=== PATIENT | female | born 1975 | race Caucasian/White ===

== ENCOUNTER 2019-02-25 15:08 | Emergency (ER) | payer BC, SELFPAY ==
[2019-02-25 15:52] VITALS: BP 118/57; PULSE 51; RESP 16; TEMP 36.4; O2SAT 99; BMI 31.6
[2019-02-25 16:46] LABS: Pregnancy Test Urine Negative (Negative)
[2019-02-25 16:47] LABS: Appearance Urine UA CLEAR; Bilirubin Urine UA NEGATIVE (NEGATIVE); Color Urine UA YELLOW; Glucose Urine UA NEGATIVE (Negative); Ketones Urine UA NEGATIVE (NEGATIVE); Leukocyte Esterase Urine UA NEGATIVE (NEGATIVE); Nitrite Urine UA NEGATIVE (Negative); Occult Blood Urine UA TRACE-LYSED (Negative); Protein Urine UA NEGATIVE (Negative); Specific Gravity Urine UA 1.015 (1.000-1.035); Urobilinogen Urine UA 0.2 E.U./dL (0.2)
--- NOTE | 2019-02-25 17:10 | DI.US.S_ITS ---
PROCEDURE: US PELVIC COMPLETE INDICATIONS: PAIN; HISTORY CYSTS TECHNIQUE: Real-time scanning was performed of the pelvic organs, with image documentation. Additional endovaginal scanning was necessary due to incomplete visualization of the adnexal and endometrial structures by transabdominal scanning. COMPARISON: None. FINDINGS: Transabdominal scanning: Limited scanning through the kidneys shows no hydronephrosis. No pathologic free abdominal or pelvic fluid. Endovaginal scanning: Uterus: Uterus is normal in size at 9.5 x 4.4 x 6.0 cm. The endometrium measures 5.7 mm in combined thickness. Ovaries: The right ovary is not visualized. The left ovary measures 2.8 x 1.5 x 2.0 cm. 2 left follicular cysts are visualized. IMPRESSION: 1. Nonvisualization of the right ovary. 2. Left ovarian follicular cysts as above. Otherwise unremarkable pelvic ultrasound. Dictated by: Laura Rhodes M.D. on 02/25/2019 at 19:27 Approved by: Laura Rhodes M.D. on 02/25/2019 at 19:29
[2019-02-25 17:18] LABS: Add Manual Diff / Slide Review NO; Basophils Absolute Auto 0 /uL (0-100); Basophils Percent Auto 0.4 % (0-2); Eosinophils Absolute Auto 1000 /uL (0-450); Hematocrit 41.6 % (36-46); Hemoglobin 13.8 g/dL (12.0-16.0); Lymphocytes Absolute Auto 3200 /uL (1100-4500); Lymphocytes Percent Auto 39.1 % (25-40); Mean Corpuscular HGB Conc 33.1 % (30-36); Mean Corpuscular Volume 90.5 fL (80-100); Monocytes Absolute Auto 500 /uL (0-900); Monocytes Percent Auto 6.2 % (3-14); Neutrophils Absolute Auto 3500 /uL (1500-7000); Neutrophils Percent Auto 42.3 % (50-75); Platelet Count 254 X10^3/uL (150-400); Red Blood Cell Count 4.59 X10^6/uL (4.0-5.2); Red Cell Distribution Width 14.6 % (11.6-14.8); White Blood Cell Count 8.2 X10^3/uL (4.5-11.0)
[2019-02-25 17:19] LABS: Alanine Aminotransferase 13 IU/L (9-52); Albumin 4.7 g/dL (3.5-5.0); Albumin Globulin Ratio 1.4 (1.0-2.8); Alkaline Phosphatase 75 U/L (38-126); Amylase 98 U/L (30-110); Aspartate Aminotransferase 19 IU/L (14-36); BUN Creatinine Ratio 18.6 (6-22); Bilirubin Total 0.9 mg/dL (0.2-1.3); Blood Urea Nitrogen 13 mg/dL (7-17); Calcium 9.6 mg/dL (8.4-10.2); Carbon Dioxide 27 mmol/L (22-32); Chloride 102 mmol/L (98-107); Estimated Glomerular Filt Rate > 60.0 mL/min (>60); Globulin 3.3 g/dL (1.7-4.1); Glucose 97 mg/dL (70-100); HEMOLYSIS < 15 (0-50); Lipase 294 U/L (23-300); Potassium 4.4 mmol/L (3.4-5.1); Sodium 139 mmol/L (137-145)
--- NOTE | 2019-02-25 18:59 | ED.ABDPAIN ---
HPI - Abdominal Pain <SANDRA Torres - Last Filed: 02/25/19 19:54> General Chief Complaint: Abdominal Pain Stated Complaint: Having ovarian pain Time Seen by Provider: 02/25/19 16:14 Source: patient Mode of arrival: ambulatory Limitations: no limitations History of Present Illness HPI narrative: The patient is a 43-year-old female nonsmoker presents with chief complaint of right lower quadrant pain. She states that she had a for 30 minutes, then it went away than she had for another 30 minutes so she came into the emergency department. She states that she also recently had left lower quadrant pain. She denies any fevers nausea vomiting or diarrhea. She denies any possibility of sexually transmitted infections. She denies any dysuria urgency or frequency. She denies any vaginal discharge. She states that she had a large ovarian cyst while she was and believes that she has another one. Related Data Home Medications Medication Instructions Recorded Confirmed vit-iron fum-folic ac 1 cap PO QDAY #0 12/31/16 [Mynatal] Previous Rx's Medication Instructions Recorded oxycodone-acetaminophen [Percocet] 1 tab PO Q4P PRN #30 tab 12/31/16 Allergies Allergy/AdvReac Type Severity Reaction Status Date / Time No Known Drug Allergies Allergy Verified 02/25/19 15:52 Review of Systems <SANDRA Torres - Last Filed: 02/25/19 19:54> Review of Systems GENERAL: Denies chills, fatigue, malaise, fever, sweats. HEENT: Denies sinus pain, ear pain, sore throat, difficulty swallowing, dizziness. RESPIRATORY: Denies dyspnea, cough, wheezing, hemoptysis, sputum. CARDIOVASCULAR: Denies chest pain, palpitations, orthopnea, edema, GASTROINTESTINAL: See HPI : Denies dysuria, frequency, incontinence, hematuria, urinary retention. MUSCULOSKELETAL: denies weakness, joint pain, or bony pain SKIN: Denies rash, skin lesions, or other NEUROLOGIC: Denies weakness, headache, numbness, change in speech, confusion, seizures, incoordination. PSYCHIATRIC: No concerning psychosocial issues. 12 point review of systems is negative except for those stated above PFSH <SANDRA Torres - Last Filed: 02/25/19 19:54> Medical History (Updated 02/25/19 @ 19:47 by SANDRA Torres) History of ovarian cyst (Acute) Social History Smoking Status: Never smoker Social History Smoking Status: Never smoker Exam <SANDRA Torres - Last Filed: 02/25/19 19:54> Narrative Exam Narrative: GENERAL: This is a well-nourished, well-developed patient, in no acute distress HEAD: Atraumatic. Normocephalic. No temporal or scalp tenderness. EYES: Pupils equal round and reactive. Extraocular motions intact. No scleral icterus. No injection or drainage. ENT: Nose without bleeding, purulent drainage or septal hematoma. Throat without erythema, tonsillar hypertrophy or exudate. Uvula midline. Airway patent. NECK: Trachea midline. No JVD or lymphadenopathy. Supple, nontender, no meningeal signs. CARDIOVASCULAR: Regular rate and rhythm without murmurs, gallops, or rubs. RESPIRATORY: Clear to auscultation. Breath sounds equal bilaterally. No wheezes, rales, or rhonchi. GASTROINTESTINAL: Abdomen soft, non-tender, nondistended. No hepato-splenomegaly, or palpable masses. No guarding. Active bowel sounds all 4 quadrants. Negative obturator sign. No peritoneal signs. EXTREMITIES: No clubbing, cyanosis, or edema. No joint tenderness, effusion, or edema noted. BACK: Nontender without deformity or crepitance. No flank tenderness. NEURO: AOx3. SKIN: No rash or erythema. Initial Vital Signs Initial Vital Signs: Vital Signs Temperature 97.6 F 02/25/19 15:52 Pulse Rate 51 L 02/25/19 15:52 Respiratory Rate 16 02/25/19 15:52 Blood Pressure 118/57 L 02/25/19 15:52 Pulse Oximetry 99 02/25/19 15:52 <Africa Sterling DO - Last Filed: 03/05/19 20:33> Initial Vital Signs Initial Vital Signs: Vital Signs Temperature 97.6 F 02/25/19 15:52 Pulse Rate 51 L 02/25/19 15:52 Respiratory Rate 16 02/25/19 15:52 Blood Pressure 118/57 L 02/25/19 15:52 Pulse Oximetry 99 02/25/19 15:52 Course <SANDRA Torres - Last Filed: 02/25/19 19:54> Orders Ordered: ED Orders 02/25/19 16:35 Urinalysis Sreen (Dip Only) Stat 02/25/19 16:37 Test Urine Stat 02/25/19 16:43 Amylase Stat Complete Blood Count AUTO DIFF Stat Comprehensive Metabolic Panel Stat Lipase Stat 02/25/19 17:10 US pelvic complete Stat Vital Signs - 8 hr 02/25/19 15:52 02/25/19 19:20 Temperature 97.6 F Pulse Rate 51 L 49 L Respiratory Rate 16 16 Blood Pressure 118/57 L Blood Pressure [Right Arm] 104/60 Pulse Oximetry 99 98 <Africa Sterling DO - Last Filed: 03/05/19 20:33> Orders Ordered: ED Orders 02/25/19 16:35 Urinalysis Sreen (Dip Only) Stat 02/25/19 16:37 Test Urine Stat 02/25/19 16:43 Amylase Stat Complete Blood Count AUTO DIFF Stat Comprehensive Metabolic Panel Stat Lipase Stat 02/25/19 17:10 US pelvic complete Stat Vital Signs - 8 hr 02/25/19 15:52 02/25/19 19:20 Temperature 97.6 F Pulse Rate 51 L 49 L Respiratory Rate 16 16 Blood Pressure 118/57 L Blood Pressure [Right Arm] 104/60 Pulse Oximetry 99 98 MDM - Abdominal Pain <TRELL Torres - Last Filed: 02/25/19 19:54> Lab Data Result diagrams: 02/25/19 16:43 02/25/19 16:43 Lab Results 02/25/19 02/25/19 02/25/19 Range/Units 16:35 16:37 16:43 WBC 8.2 (4.5-11.0) X10^3/uL RBC 4.59 (4.0-5.2) X10^6/uL Hgb 13.8 (12.0-16.0) g/dL Hct 41.6 (36-46) % MCV 90.5 (80-100) fL MCH 30.0 (26-34) PG MCHC 33.1 (30-36) % RDW 14.6 (11.6-14.8) % Plt Count 254 (150-400) X10^3/uL Neut % (Auto) 42.3 L (50-75) % Lymph % (Auto) 39.1 (25-40) % Boundary % (Auto) 6.2 (3-14) % Eos % (Auto) 12.0 H (2-4) % Baso % (Auto) 0.4 (0-2) % Neut # (Auto) 3500 (2557-6069) /uL Lymph # (Auto) 3200 (8646-4261) /uL Boundary # (Auto) 500 (0-900) /uL Eos # (Auto) 1000 H (0-450) /uL Baso # (Auto) 0 (0-100) /uL Sodium (137-145) mmol/L Potassium (3.4-5.1) mmol/L Chloride (98-107) mmol/L Carbon Dioxide (22-32) mmol/L BUN (7-17) mg/dL Creatinine (0.52-1.04) mg/dL Estimated GFR (>60) mL/min BUN/Creatinine Ratio (6-22) Glucose (70-100) mg/dL Calcium (8.4-10.2) mg/dL Total Bilirubin (0.2-1.3) mg/dL AST (14-36) IU/L ALT (9-52) IU/L Alkaline Phosphatase (38-126) U/L Total Protein (6.3-8.2) g/dL Albumin (3.5-5.0) g/dL Globulin (1.7-4.1) g/dL Albumin/Globulin Ratio (1.0-2.8) Amylase (30-110) U/L Lipase (23-300) U/L Urine Color Yellow Urine Appearance Clear Urine pH 6.0 (4.5-8.0) Ur Specific [place] 1.015 (1.000-1.035) Urine Protein Negative (Negative) Urine Glucose (UA) Negative (Negative) g/dL Urine Ketones Negative (NEGATIVE) Urine Occult Blood Trace-lysed (Negative) Urine Nitrate Negative (Negative) Urine Bilirubin Negative (NEGATIVE) Urine Urobilinogen 0.2 (0.2) E.U./dL Ur Leukocyte Esterase Negative (NEGATIVE) Urine Test Negative (Negative) 02/25/19 Range/Units 16:43 WBC (4.5-11.0) X10^3/uL RBC (4.0-5.2) X10^6/uL Hgb (12.0-16.0) g/dL Hct (36-46) % MCV (80-100) fL MCH (26-34) PG MCHC (30-36) % RDW (11.6-14.8) % Plt Count (150-400) X10^3/uL Neut % (Auto) (50-75) % Lymph % (Auto) (25-40) % Boundary % (Auto) (3-14) % Eos % (Auto) (2-4) % Baso % (Auto) (0-2) % Neut # (Auto) (5163-0362) /uL Lymph # (Auto) (9910-6853) /uL Bound[place] # (Auto) (0-900) /uL Eos # (Auto) (0-450) /uL Baso # (Auto) (0-100) /uL Sodium 139 (137-145) mmol/L Potassium 4.4 (3.4-5.1) mmol/L Chloride 102 (98-107) mmol/L Carbon Dioxide 27 (22-32) mmol/L BUN 13 (7-17) mg/dL Creatinine 0.70 (0.52-1.04) mg/dL Estimated GFR > 60.0 (>60) mL/min BUN/Creatinine Ratio 18.6 (6-22) Glucose 97 (70-100) mg/dL Calcium 9.6 (8.4-10.2) mg/dL Total Bilirubin 0.9 (0.2-1.3) mg/dL AST 19 (14-36) IU/L ALT 13 (9-52) IU/L Alkaline Phosphatase 75 (38-126) U/L Total Protein 8.0 (6.3-8.2) g/dL Albumin 4.7 (3.5-5.0) g/dL Globulin 3.3 (1.7-4.1) g/dL Albumin/Globulin Ratio 1.4 (1.0-2.8) Amylase 98 (30-110) U/L Lipase 294 (23-300) U/L Urine Color Urine Appearance Urine pH (4.5-8.0) Ur Specific [place] (1.000-1.035) Urine Protein (Negative) Urine Glucose (UA) (Negative) g/dL Urine Ketones (NEGATIVE) Urine Occult Blood (Negative) Urine Nitrate (Negative) Urine Bilirubin (NEGATIVE) Urine Urobilinogen (0.2) E.U./dL Ur Leukocyte Esterase (NEGATIVE) Urine Test (Negative) Imaging Data pelvic US: Radiologist's impression: Linda Barrientos 43 F [address] [address] Ultrasound Report Signed Patient: Linda Barrientos [facility]#: [id number] : 1975Acct:[id number] Age/Sex: 43 / FDate of Service: 02/25/19 Loc: ED Accession Number: [id number] Procedure: US pelvic complete Ordering Provider: Dulce RuffinP- PROCEDURE: US PELVIC COMPLETE INDICATIONS: PAIN; HISTORY CYSTS TECHNIQUE: Real-time scanning was performed of the pelvic organs, with image documentation. Additional endovaginal scanning was necessary due to incomplete visualization of the adnexal and endometrial structures by transabdominal scanning. COMPARISON: None. FINDINGS: Transabdominal scanning: Limited scanning through the kidneys shows no hydronephrosis. No pathologic free abdominal or pelvic fluid. Endovaginal scanning: Uterus: Uterus is normal in size at 9.5 x 4.4 x 6.0 cm. The endometrium measures 5.7 mm in combined thickness. Ovaries: The right ovary is not visualized. The left ovary measures 2.8 x 1.5 x 2.0 cm. 2 left follicular cysts are visualized. IMPRESSION: 1. Nonvisualization of the right ovary. 2. Left ovarian follicular cysts as above. Otherwise unremarkable pelvic ultrasound. Dictated by: Laura Rhodes M.D. on 02/25/2019 at 19:27 Approved by: Laura Rhodes M.D. on 02/25/2019 at 19:29 [facility] Narrative Medical decision making narrative: The patient is a 43-year-old female presents with right lower quadrant pain. She has normal blood work, normal urinalysis negative . Her ultrasound does not visualize her right ovary, but she is noted to have some left follicular cysts. She does not have any acute signs of appendicitis, no leukocytosis, no fever vomiting. She is eating during exam. She later states that her pain is gone completely. Thus I do not believe she has an acute abdomen, and her exam correlates. I discussed at length follow up with her PCP. Discussed coming back to the ER for any acute concerns such as in the keep down fluids, fever combined with abdominal pain etc. No questions or concerns upon discharge. <Africa Sterling, DO - Last Filed: 03/05/19 20:33> Lab Data Lab Results 02/25/19 02/25/19 02/25/19 Range/Units 16:35 16:37 16:43 WBC 8.2 (4.5-11.0) X10^3/uL RBC 4.59 (4.0-5.2) X10^6/uL Hgb 13.8 (12.0-16.0) g/dL Hct 41.6 (36-46) % MCV 90.5 (80-100) fL MCH 30.0 (26-34) PG MCHC 33.1 (30-36) % RDW 14.6 (11.6-14.8) % Plt Count 254 (150-400) X10^3/uL Neut % (Auto) 42.3 L (50-75) % Lymph % (Auto) 39.1 (25-40) % Boundary % (Auto) 6.2 (3-14) % Eos % (Auto) 12.0 H (2-4) % Baso % (Auto) 0.4 (0-2) % Neut # (Auto) 3500 (8681-2338) /uL Lymph # (Auto) 3200 (9234-5765) /uL Bound[place] # (Auto) 500 (0-900) /uL Eos # (Auto) 1000 H (0-450) /uL Baso # (Auto) 0 (0-100) /uL Sodium (137-145) mmol/L Potassium (3.4-5.1) mmol/L Chloride (98-107) mmol/L Carbon Dioxide (22-32) mmol/L BUN (7-17) mg/dL Creatinine (0.52-1.04) mg/dL Estimated GFR (>60) mL/min BUN/Creatinine Ratio (6-22) Glucose (70-100) mg/dL Calcium (8.4-10.2) mg/dL Total Bilirubin (0.2-1.3) mg/dL AST (14-36) IU/L ALT (9-52) IU/L Alkaline Phosphatase (38-126) U/L Total Protein (6.3-8.2) g/dL Albumin (3.5-5.0) g/dL Globulin (1.7-4.1) g/dL Albumin/Globulin Ratio (1.0-2.8) Amylase (30-110) U/L Lipase (23-300) U/L Urine Color Yellow Urine Appearance Clear Urine pH 6.0 (4.5-8.0) Ur Specific [place] 1.015 (1.000-1.035) Urine Protein Negative (Negative) Urine Glucose (UA) Negative (Negative) g/dL Urine Ketones Negative (NEGATIVE) Urine Occult Blood Trace-lysed (Negative) Urine Nitrate Negative (Negative) Urine Bilirubin Negative (NEGATIVE) Urine Urobilinogen 0.2 (0.2) E.U./dL Ur Leukocyte Esterase Negative (NEGATIVE) Urine Test Negative (Negative) 02/25/19 Range/Units 16:43 WBC (4.5-11.0) X10^3/uL RBC (4.0-5.2) X10^6/uL Hgb (12.0-16.0) g/dL Hct (36-46) % MCV (80-100) fL MCH (26-34) PG MCHC (30-36) % RDW (11.6-14.8) % Plt Count (150-400) X10^3/uL Neut % (Auto) (50-75) % Lymph % (Auto) (25-40) % Bound[place] % (Auto) (3-14) % Eos % (Auto) (2-4) % Baso % (Auto) (0-2) % Neut # (Auto) (0215-5092) /uL Lymph # (Auto) (6762-1075) /uL Bound[place] # (Auto) (0-900) /uL Eos # (Auto) (0-450) /uL Baso # (Auto) (0-100) /uL Sodium 139 (137-145) mmol/L Potassium 4.4 (3.4-5.1) mmol/L Chloride 102 (98-107) mmol/L Carbon Dioxide 27 (22-32) mmol/L BUN 13 (7-17) mg/dL Creatinine 0.70 (0.52-1.04) mg/dL Estimated GFR > 60.0 (>60) mL/min BUN/Creatinine Ratio 18.6 (6-22) Glucose 97 (70-100) mg/dL Calcium 9.6 (8.4-10.2) mg/dL Total Bilirubin 0.9 (0.2-1.3) mg/dL AST 19 (14-36) IU/L ALT 13 (9-52) IU/L Alkaline Phosphatase 75 (38-126) U/L Total Protein 8.0 (6.3-8.2) g/dL Albumin 4.7 (3.5-5.0) g/dL Globulin 3.3 (1.7-4.1) g/dL Albumin/Globulin Ratio 1.4 (1.0-2.8) Amylase 98 (30-110) U/L Lipase 294 (23-300) U/L Urine Color Urine Appearance Urine pH (4.5-8.0) Ur Specific [place] (1.000-1.035) Urine Protein (Negative) Urine Glucose (UA) (Negative) g/dL Urine Ketones (NEGATIVE) Urine Occult Blood (Negative) Urine Nitrate (Negative) Urine Bilirubin (NEGATIVE) Urine Urobilinogen (0.2) E.U./dL Ur Leukocyte Esterase (NEGATIVE) Urine Test (Negative) Discharge Plan Departure Patient Disposition: Home Clinical Impression: Abdominal pain Qualifiers: Abdominal location: right lower quadrant Qualified Code(s): R10.31 - Right lower quadrant pain Discharge Date/Time: 02/25/19 19:52 Interventions: ED Discharge Assessment Last Done: 02/25/19 19:51 Instructions: DI for Abdominal Pain-Adult Activity Restrictions/Additional Instructions: Your lab work, and ultrasound today were grossly normal. However they did not visualize your right ovary. Your lab work and imaging combined with her pain-free status are very reassuring at this point time. Please follow-up with primary care provider. Monitor for fever, inability keep down fluids and come back to the emergency department for any acute concerns. Prescriptions: No Action vit-iron fum-folic ac [Mynatal] 1 EACH capsule 1 cap PO QDAY Qty: 0 RF: 0 oxycodone-acetaminophen [Percocet] 5 MG/325 MG tablet 1 tab PO Q4P PRNQty: 30 RF: 0 Referrals: Юлия Miller MD [Family Provider] - <Africa Sterling DO - Last Filed: 03/05/19 20:33> Cosign ED Attending Puraature Attestation: I was immediately available in the department for consultation. Documentation has been reviewed. I agree with assessment and plan.
[2019-02-25 19:20] VITALS: BP 104/60; PULSE 49; RESP 16; O2SAT 98
== END 2019-02-25 19:52 | disposition home or self-care (01) ==
PROVIDERS: Emergency Provider Nurse Practitioner Family; Family Provider Obstetrics & Gynecology
DX: N83.02 Follicular cyst of left ovary (principal); R10.31 Right lower quadrant pain
CPT/HCPCS: 76830; 76856; 80053; 81003; 81025; 82150; 83690; 85025; 99283; 99284